=== PATIENT | female | born 1985 | race Caucasian/White ===

== ENCOUNTER → 2016-04-04 | Outpatient (CLI) | payer OTHER ==
[~2016-04-04] MED LIST: B-CO1CAP17 PO; CHOL400T; NORE5TAB5 PO
[2016-04-04 12:20] LABS: HEMATOCRIT 37.1 % (37-47)
[2016-04-04 13:08] LABS: PROLACTIN 7.71 ng/mL
== END | disposition home or self-care (01) ==
LOC: C.LAB 11:31
PROVIDERS: ATTEND Obstetrics & Gynecology
DX: N93.9 Abnormal uterine and vaginal bleeding, unspecified (principal)

== ENCOUNTER → 2016-04-24 | Outpatient (CLI) | payer OTHER | END | disposition home or self-care (01) | LOC: C.PAPS 16:46 | PROVIDERS: ATTEND Obstetrics & Gynecology | DX: Z01.419 Encounter for gynecological examination (general) (routine) without abnormal findings (principal) ==

== ENCOUNTER → 2016-04-24 | Outpatient (CLI) | payer OTHER ==
[2016-04-24 12:26] LABS: BASO % 0.5 %; BASO ABS # 0.03 K/uL (0-0.2); COMPLETE YES; EOS % 1.6 %; LYMPH % 25.2 %; LYMPH ABS # 1.62 K/uL (1.2-3.4); MEAN CELL VOLUME 76.8 fL (80-100); MEAN CORPUSCULAR HEMOGLOBIN 25.3 pg (25-34); MEAN PLATELET VOLUME 11.7 fL (7.4-10.4); MONO % 7.6 %; NEUT % 65.1 %; PLATELET COUNT 238 K/uL (130-400); RED BLOOD COUNT 4.82 M/uL (4.2-5.4); WHITE BLOOD COUNT 6.43 K/uL (4.8-10.8)
[2016-04-24 12:59] LABS: PREG INTERNAL NEGATIVE QC NEG CLEAR BACKGROUND; PREG INTERNAL POSITIVE QC POS CONTROL LINE
== END | disposition home or self-care (01) ==
LOC: C.LAB 11:19
PROVIDERS: ATTEND Obstetrics & Gynecology
DX: Z01.812 Encounter for preprocedural laboratory examination (principal)

== ENCOUNTER → 2016-05-25 | Day surgery (SDC) | payer OTHER ==
[2016-04-10 09:26] VITALS: BMI 23.0
--- NOTE | 2016-04-24 11:36 | HISTORY & PHYSICAL EXAMINATION ---
DATE OF ADMISSION: 04/27/2016 CHIEF COMPLAINT: Heavy vaginal bleeding with clotting, severe pelvic pain, dyspareunia, family history of endometriosis. HISTORY OF PRESENT ILLNESS: The patient is a 31-year-old 4, para 4. had a vasectomy for control. She has been having problems with severe heavy vaginal bleeding and pelvic pain for over 10 months. Her periods are coming every 28-30 days. They last for 7 days. At times she can soak a pad in under 20 minutes, and she has severe pelvic pain and cramping, midline pain during her periods, which is nonresponsive to nonnarcotic pain relievers, and then when she is not having her period, she has chronic right adnexal pain. She has a family history, mother had a total abdominal hysterectomy at age 42. She had a transvaginal ultrasound done on 04/04/2016 which showed a left-sided hemorrhagic cyst 3.8 x 3.8 x 2.8 cm and she is presently being scheduled for a diagnostic laparoscopy and a D and C. PAST MEDICAL HISTORY: No smoking. No alcohol intake. Works as a housewife. FAMILY HISTORY: Mom is 50, had a MARION-BSO at age 42 for endometriosis. Father is 50 in good health. Two brothers and 3 sisters, all in good health. REVIEW OF SYSTEMS: HEAD: No symptoms of frequent or severe headaches. EYES: No symptoms of blurred vision, double vision. EARS: No symptoms of frequent ear infections, difficulty hearing. NOSE: No symptoms of frequent nosebleeds, difficulty breathing through her nose. THROAT: No symptoms of frequent or severe sore throat, difficulty swallowing. RESPIRATORY SYSTEM: No history of asthma, chest pain, shortness of breath. PHYSICAL EXAMINATION: GENERAL: Well developed, well-nourished 31-year-old white female, alert, oriented x3 and cooperative in no acute distress, appears stated age. EYES: Conjunctivae are pink. Sclerae white. No evidence of jaundice. EARS: Had normal light reflex bilaterally. NOSE: Had normal mucosa. Septum is midline. There were no polyps. THROAT: No erythema or evidence of infection. Teeth are in good state of repair. HEAD: Was normocephalic, normal distribution of hair. NECK: Supple. Trachea midline. Thyroid is not enlarged. There is no adenopathy appreciated. Both carotids are of good intensity. CHEST: Clear to auscultation and percussion. No wheezes, rales or rhonchi appreciated. HEART: Had regular rhythm. S1, S2 were normal. BREASTS: Normal. ABDOMEN: Soft and nontender. PELVIC: Revealed a normal appearing cervix. Bimanual exam revealed tenderness of both uterosacral ligaments and generalized pelvic tenderness. MUSCULOSKELETAL: Revealed no calf tenderness. IMPRESSIONS OF THIS CASE: Pelvic pain, hypermenorrhea, dyspareunia, endometriosis. MTDD
[2016-04-26 15:47] VITALS: BMI 23.0
[2016-05-11 13:49] VITALS: Ht 160 cm; Wt 59.1 kg
--- NOTE | 2016-05-22 11:07 | HISTORY & PHYSICAL EXAMINATION ---
DATE OF ADMISSION: 05/25/2016 CHIEF COMPLAINT: Heavy vaginal bleeding with clotting, severe pelvic pain, dyspareunia, family history of endometriosis. HISTORY OF PRESENT ILLNESS: The patient is a 31-year-old 4, para 4. had a vasectomy for control. She has been having problems with severe heavy bleeding and pelvic pain for over 10 months. Periods are coming every 28-30 days, they last for 7+ days. At times she can soak over a pad in 20 minutes, and she describes severe pelvic pain and cramping during her periods. This pain is nonresponsive to nonnarcotic pain relievers, and she states when she is not having her period, she has chronic right adnexal pain. She has a strong family history of endometriosis. Her mother had total abdominal hysterectomy at age 42. She has had a transvaginal ultrasound on 04/04/2016, showed a left-sided hemorrhagic cyst 3.8 x 3.8 x 2.8 cm, presently being scheduled for an outpatient D\T\C and a diagnostic laparoscopy. SOCIAL HISTORY: No smoking. No alcohol intake. Works as a housewife. FAMILY HISTORY: Mom is 50, had a MARION-BSO at age 42 for endometriosis. Father is 50, in good health. Two brothers and 3 sisters in good health. REVIEW OF SYSTEMS: HEAD: No symptoms of frequent or severe headaches. EYES: No symptoms of blurred vision or double vision. EARS: No symptoms of frequent ear infections or difficulty hearing. NOSE: No symptoms of frequent nosebleeds or difficulty breathing through her nose. THROAT: No symptoms of frequent severe sore throats or difficulty swallowing. RESPIRATORY SYSTEM: No history of asthma, chest pain, or shortness of breath. PHYSICAL EXAMINATION: GENERAL: Well developed, well-nourished 31-year-old white female, alert, oriented x3, cooperative, in no acute distress, appeared her stated age. EYES: Conjunctivae are pink. Sclerae white. No evidence of jaundice. EARS: Normal light reflex bilaterally. NOSE: Normal mucosa. Septum is midline. There are no polyps. THROAT: No erythema or evidence of infection. Teeth are in good state of repair. HEAD: Normocephalic, normal distribution of hair. NECK: Supple. Trachea midline. Thyroid is not enlarged. There is no adenopathy appreciated. Both carotids are of good intensity. CHEST: Clear to auscultation and percussion. There are no wheezes, rales or rhonchi appreciated. HEART: Regular rhythm. S1 and S2 are normal. BREASTS: Normal. ABDOMEN: Soft and nontender. PELVIC: Normal appearing cervix. Bimanual exam reveals tenderness and nodularity of both uterosacral ligaments and generalized pelvic tenderness. MUSCULOSKELETAL: No calf tenderness. IMPRESSIONS OF THIS CASE: Pelvic pain, hypermenorrhea, dyspareunia, suspected endometriosis.
[2016-05-22 11:11] LABS: PREG INTERNAL NEGATIVE QC NEG CLEAR BACKGROUND; PREG INTERNAL POSITIVE QC POS CONTROL LINE
[~2016-05-25] VITALS: Ht 160 cm; Wt 59.1 kg
[~2016-05-25] MED LIST changes: +ATROPINE SULFATE 0.1 MG/ML 5ML SYR IV PRN; +BUPIVACAINE 0.5 % 5 MG/1 ML PF 10ML VIAL ONE; +BUPIVACAINE/EPINEPHRINE 0.5% MPF 1:200,000 30 ML VIAL ONE; +DEXAMETHASONE SOD INJ 4 MG/ML VIAL ONE; +EpHEDrine SULFATE INJ 50 MG/ML AMP IV PRN; +FENTANYL CITRATE INJ 50 MCG/1 ML 2 ML VIAL IV PRN; +FENTANYL CITRATE INJ 50 MCG/1 ML 2 ML VIAL ONE; +GLYCOPYRROLATE INJ 0.2 MG/ML VIAL ONE; +HYDROCODONE/ACETAMOPHEN 5/325MG TAB PO PRN; +IBUPROFEN 600 MG TAB PO PRN; +KETOROLAC TROMETHAMINE 30 MG/ML VIAL IV. PRN; +KETOROLAC TROMETHAMINE 30 MG/ML VIAL ONE; +LACTATED RINGER'S 1000ML 1,000 ML IV SCH; +LIDOCAINE HCL 2% 2 ML VIAL (20MG/ML) ONE; +MIDAZOLAM HCL 1 MG/ML 2ML VIAL ONE; +NEOSTIGMINE METHYLSULFATE 5 MG/5 ML SYR ONE; +ONDANSETRON INJ 2 MG/ML 2 ML VIAL IV PRN; +ONDANSETRON INJ 2 MG/ML 2 ML VIAL ONE; +OXYCODONE/ACETAMINOPHEN 5-325 TAB PO PRN; +PROPOFOL IV EMULSION 10 MG/ML 20 ML VIAL IV ONE; +ROCURONIUM BROMIDE 10 MG/ML 5 ML VIAL ONE; +SODIUM CHLORIDE 0.9% 1000ML 1,000 ML IV SCH; +SODIUM CHLORIDE 0.9% INJ 10 ML VIAL ONE
--- NOTE | 2016-05-25 10:41 | History & Physical Bridge Note ---
H&P Re-Evaluation Bridge Note: I have examined the patient, reviewed the History & Physical and in the interval since the performance of the History & Physical I have noted the following changes of clinical significance: No changes noted
--- NOTE | 2016-05-25 12:57 | [facility] Post Operative Brief Note ---
Immediate Operative Summary Operative Date May 25, 2016. Pre-Operative Diagnosis Heavy Vaginal Bleeding, Pelvic Pain Post-Operative Diagnosis same Procedure(s) Performed Diagnostic Laparoscopy, Lysis of Adhesions, Dilitation And Curettage Surgeon Dr. Sen Contreras Fortune Teller Surgeon(s) 0 Estimated Blood Loss 5cc Findings pelvic adhesions endometriosis Specimens A. Endometrial Curettings Complication(s) None Disposition Recovery Room / PACU
--- NOTE | 2016-05-25 13:00 | Discharge Instructions-SurgCtr ---
Discharge Instructions Date of Service May 25, 2016. Visit Reason for Visit: Heavy Vaginal Bleeding, Pelvic Pain Discharge Discharge Diagnosis / Problem: pelvic adhesions endometriosis Discharge Goals Goal(s): Decrease discomfort, Improve function Activity Recommendations Activity Limitations: as noted below SPECIAL CARE INSTRUCTIONS: * Check temperature twice daily for one week. Report any elevation over 100.4 degrees Fahrenheit (38.0 degrees Celsius). * Call office in the next few days for return appointment. * You may experience some vaginal spotting and/or bleeding, this is normal for one or two weeks and should not alarm you. * Post-operative discomfort may consist of a sore throat, a "bloated" feeling and pain in the shoulders. These are normal symptoms which usually only last for two or three days. FOLLOW UP VISIT: Keep any scheduled doctor appointments. ACTIVITY RECOMMENDATIONS: * Avoid tampons, douching, hot tubs, pools, and intercourse until bleeding has stopped. * May shower as usual. * No strenuous activity for 24-48 hours. After 24-48 hours, you may do anything you feel like doing (driving and sports are okay). SPECIAL CARE INSTRUCTIONS: Special Diet: * Mild nausea may occur in the immediate post-operative period. * Take clear liquids such as tea, cola or bouillon until all nausea has subsided; you may then resume your normal diet. Special Care: * Light bleeding and vaginal spotting can last from a few days to 3-4 weeks. Call your doctor if bleeding becomes heavier than the heaviest part of your period. * Check your temperature twice a day for one week. If it goes above 100.4 degrees Fahrenheit (38.0 Celsius), notify your doctor. * Call your doctor's office for an appointment for 6 weeks after your surgery. FOLLOW-UP VISIT: Call your doctor's office for an appointment for 6 weeks after your surgery. Anesthesia . Post Anesthesia Instructions: If you have had General Anesthesia or IV Sedation: * Do not drive today. * Resume driving when surgeon permits. * Do not make important decisions or sign legal documents today. * Call surgeon for: 1. Temperature elevations greater than 101 degrees F. 2. Uncontrollable pain. 3. Excessive bleeding. 4. Persistent nausea and vomiting. 5. Medication intolerance (nausea, vomiting or rash). * For nausea and vomiting use only clear liquids such as: tea, soda, bouillon until nausea subsides, then gradually increase diet as tolerated. * If you have any concerns or questions, call your surgeon's office. If physician is unavailable and it is an emergency, call 911 or go to the nearest emergency room. . Diet Recommendations Home Diet: resume previous diet Procedures Procedures Performed: Diagnostic Laparoscopy, Lysis of Adhesions, Dilitation And Curettage Pending Studies Studies pending at discharge: no Medical Emergencies . Who to Call and When: Medical Emergencies: If at any time you feel your situation is an emergency, please call 911 immediately. . Non-Emergent Contact Non-Emergency issues call your: Leather Stitcher Call Non-Emergent contact if: temperature is above 100.5 . . "Provider Documentation" section prepared by Erik Contreras.
--- NOTE | 2016-05-25 13:10 | OPERATIVE REPORT ---
DATE OF OPERATION: 05/25/2016 INDICATIONS FOR SURGERY: Heavy vaginal bleeding, pelvic pain, positive family history of endometriosis. POSTOPERATIVE DIAGNOSIS: Minimal endometriosis, adhesions of the cecum to the anterior abdominal wall. PROCEDURE: D\T\C, diagnostic laparoscopy, lysis of adhesions. SURGEON: Dr. Contreras. ESTIMATED BLOOD LOSS: 10 mL. ANESTHESIA: General. OPERATIVE FINDINGS AND PROCEDURE: The patient was brought to the OR table, correctly identified by armband and conversation. General anesthesia was administered. Perineum, vagina and lower abdomen were painted with Betadine paint, draped in usual sterile fashion. Catheter was used to empty the bladder. Careful pelvic exam under anesthesia revealed a normal size anteverted uterus. There were no adnexal masses appreciated. Weighted speculum was placed in the posterior vagina. Anterior lip of the cervix was grasped with single tooth tenaculum. Uterus sounded to 9 cm. Cervix was dilated with graduated dilators. Small sharp serrated curette was placed in the uterine cavity and the uterus was thoroughly and systematically cureted. This was productive of a moderate to small amount of tissue. Following this, an acorn cannula was inserted into the cervical canal for manipulation of the uterus. Attention was now turned to the lower abdomen. Subumbilical area was infiltrated with local with epinephrine. Stab wound was placed. A trocar was placed into the abdominal cavity. Position was checked with normal saline, 2+ liters of carbon dioxide gas was passed under low pressure. Incision was then widened laterally and a large cannula and trocar was inserted. Trocar was removed. Laparoscope was inserted. Good visualization of pelvic structures was obtained at this time. A second puncture site was placed 3 fingerbreadths above the pubic symphysis in the midline. This area was infiltrated with local with epinephrine and then a stab wound was placed and a 5 mm trocar and sleeve was inserted under direct visualization. Trocar was removed and a blunt probe was used to inspect the pelvic cavity. Tubes were mobile. Ovaries were mobile. Cul-de-sac was clean. There was a small amount of endometriosis on the right lateral pelvic wall. Photographs were taken of it. Insertion of the round ligaments were normal. Bladder flap was normal. There were some tense adhesions from the cecal area to the anterior abdominal wall. These were released by cauterizing close to the abdominal wall with the bipolar cauterization forceps and then cutting them with the laparoscopic scissors. Following this, hemostasis was good. Gas was expressed manually. Ports were cleaned with Betadine and sutured with interrupted Vicryl. I attest to the content of the Intraoperative Record and any orders documented therein. Any exceptio ns are noted below.
--- NOTE | 2016-05-25 13:19 | Anesthesia Progress Nt - [facility] ---
Anesthesia Post Op Note Date & Time May 25, 2016 at 13:20 Vital Signs Pain Intensity: 0 Vital Signs Past 12 Hours Date Time Temp Pulse Resp B/P Pulse Ox O2 Delivery O2 Flow Rate FiO2 05/25/16 12:59 36.7 104 16 124/76 100 Diffusion Mask 6 05/25/16 09:57 37.1 70 16 121/81 100 Room Air Notes Mental Status: alert / awake / arousable, participated in evaluation Pt Amnestic to Procedure: Yes Nausea / Vomiting: adequately controlled Pain: adequately controlled Airway Patency, RR, SpO2: stable & adequate BP & HR: stable & adequate Hydration State: stable & adequate Anesthetic Complications: no major complications apparent
[2016-05-25 13:47] VITALS: TEMP 36.5
[2016-05-25 14:09] VITALS: BP 112/73; PULSE 63; O2SAT 97
== END | disposition home or self-care (01) ==
LOC: X.SURG 09:39
PROVIDERS: ATTEND Obstetrics & Gynecology
DX: R10.2 Pelvic and perineal pain (principal); N80.9 Endometriosis, unspecified; K66.0 Peritoneal adhesions (postprocedural) (postinfection); N93.9 Abnormal uterine and vaginal bleeding, unspecified